=== PATIENT | female | born 1955 | race Caucasian/White ===

== ENCOUNTER → 2023-03-27 12:59 | Outpatient (REF) | payer MEDICARE, OTHER, SELFPAY | LOC: RAD 12:59 | PROVIDERS: ATTENDING PHYSICIAN Physician Assistant; FAMILY PHYSICIAN Family Medicine | DX: I77.0 Arteriovenous fistula, acquired (principal) | CPT/HCPCS: 93990 ==

== ENCOUNTER → 2023-04-28 11:35 | Outpatient (REF) | payer MEDICARE, OTHER, SELFPAY | LOC: WDC 11:35 | PROVIDERS: ATTENDING PHYSICIAN Family Medicine | DX: Z12.31 Encounter for screening mammogram for malignant neoplasm of breast (principal) | CPT/HCPCS: 77063; 77067 ==

== ENCOUNTER 2023-06-06 06:59 | Day surgery (SDC) | payer MEDICARE, OTHER, SELFPAY ==
[2023-06-06] VITALS (12 sets, daily range): BP systolic 134–200; BP diastolic 54–76; BMI 29.5
[2023-06-06 07:47] LABS: Glucose - Point of Care 123 mg/dl (70-99)
[2023-06-06] MEDS: PERIDEX 0.12% ORAL RINSE 15 ML PO (07:50)
[2023-06-06 07:53] LABS: Hematocrit 30.3 % (37.0-47.0); Hemoglobin 10.5 g/dL (12.0-16.0); Mean Corp Hgb Conc. 34.7 g/dL (33.0-37.0); Mean Corpuscular Hgb 32.8 pg (27.0-31.0); Mean Corpuscular Volume 94.7 fL (81.0-99.0); Mean Platelet Volume 9.7 fL (7.4-10.4); Platelet Count 236 10^3/uL (130-400); Red Cell Dist. Width 13.5 % (11.5-14.5); White Blood Cell Count 7.8 10^3/uL (4.8-10.8)
[2023-06-06 08:00] LABS: Blood Urea Nitrogen 33 mg/dl (7-17); Calcium 10.5 mg/dl (8.4-10.2); Carbon Dioxide 31 mmol/L (22-30); Chloride 99 mmol/L (98-107); Estimated Creatinine Clearance 14 ml/min; Glucose 125 mg/dl (70-99); Potassium 4.6 mmol/L (3.5-5.1); Sodium 136 mmol/L (135-145); eGFR 12.29
[2023-06-06 08:10] LABS: APTT 32.3 Sec (23.4-35.0)
[2023-06-06] MEDS: BACTROBAN NASAL 1 GRAM NASAL (08:17)
--- NOTE | 2023-06-06 08:30 | W.SUR.PREOP ---
Pre-Operative Surgical Note
-
I have examined this patient prior to the performance of the scheduled procedure.
The patient's condition is unchanged from the time of the current History and
Physical and the patient is able to undergo the scheduled procedure.
--- NOTE | 2023-06-06 10:06 | W.PA-PDMP ---
[place]-PDMP
-
Checked the [place]- Prescription Drug Monitoring Program website, no red flags identified; safe to proceed with prescription.
--- NOTE | 2023-06-06 10:07 | OR.RPT ---
Operative Report
Operative Report
Date of Operation: 06/06/2023
Pre Op Diagnosis: Upper extremity brachiobasilic AV fistula (status post 1st stage of planned 2 stage basilic vein transposition)
Post Op Diagnosis: Upper extremity brachiobasilic AV fistula (status post 1st stage of planned 2 stage basilic vein transposition)
Procedure: Revision of left upper extremity brachiobasilic AV fistula with transposition of the basilic vein (second stage BVT)
Surgeon: Daniel Lopez III, MD
[employer]: Param Ramsey MD PhD, PGY1
Anesthesia: General
Complications: None
Estimated Blood Loss: 20 cc
History and Indications for Procedure: Status post first stage of a planned two-stage left upper extremity basilic vein transposition for hemodialysis access. She was brought back to the operating room today for stage II.
Procedure in Detail: Sharon Washington was correctly identified and placed supine on the operating table. After adequate induction of anesthesia the left arm was abducted 90 degrees. A timeout procedure was performed with the nursing and anesthesia
staff confirming the patient's identity and the nature and laterality of the procedure. The basilic vein was marked in the upper arm with ultrasound guidance. The arm was then circumferentially prepped and draped in the usual sterile fashion. We
made an incision over the medial upper arm. The entire basilic vein was dissected with careful sharp dissection. All branches were ligated and divided between ties and metal clips. The vein was good caliber along the entire course and had an
excellent thrill. Once the entire vein had been carefully dissected we then created a gentle curved tunnel lateral to the incision over the bicep with a long clamp. Proximal control was obtained on the vein with a small vascular clamp. The vein was
marked and then transected near the arterial anastomosis. The vein was flushed easily with heparinized saline solution. The vein was then brought through the tunnel carefully. The two ends of the vein were anastomosed to one another in an
end-to-end fashion using a running 7-0 Prolene suture. At the completion of the anastomosis the clamp was released and flow restored through the fistula. There was an excellent thrill in the tunnel. The suture line was inspected for hemostasis and
this was achieved. The wound was irrigated with warm saline solution. Hemostasis was achieved in the wound bed. Local anesthesia was infiltrated into the skin and subcutaneous tissue around the wound margin. The wound was then closed in multiple
layers and skin glue was applied. The patient had an easily palpable thrill over the basilic vein in the tunnel and a palpable radial pulse at the conclusion of the case.
Attestation: I was present and responsible for the entire procedure
Signed:
Daniel Lopez III, MD
[facility]
[phone] (cell)
--- NOTE | 2023-06-06 10:22 | W.IMMPOSTOP ---
Surgical Immed Post Op Note
-
Primary Surgeon: Dr. Daniel Ruiz III, MD
Assisting Surgeon: Dr. Param Ramsey MD, PhD (PGY-1)
Pre-op Diagnosis: Left upper extremity AV fistula (brachiobasilic) s/p stage 1
Post-op Diagnosis: Left upper extremity AV fistula (brachiobasilic) s/p stage 2 transposition of basilic vein
Procedure Performed: Left upper extremity basilic vein transposition
Anesthesia Type: General
Specimen / Cultures: None
Estimated Blood Loss: 20cc
Complications: None
Operative Findings: At the beginning of the procedure, the basilic vein was identified via ultrasound and its course marked with a marking pen on the skin. Incision was made in the medial aspect of the left upper extremity along the course of the
basilic vein. The basilic vein was circumferentially dissected along its entire course with sharp dissection. Branches of the basilic vein were ligated with silk suture or clips as necessary and divided. A soft tissue tunnel was created cranially
with respect to the vein. The basilic vein was clamped distally and divided near the AV fistula anastomosis. Heparinized saline was injected into both proximall and distal ends of the basilic vein. The proximal aspect of the vein was tunneled
through the soft tissue tunnel and the two ends of the vein were anastomosed using a running 7-0 prolene suture. Following the anastomosis, the clamp was released and palpable flow was confirmed with a robust palpable thrill noted along the entire
extent of the vein. The wound bed was irrigated and hemostasis was achieved with fibrillar. Soft tissues and skin were closed with two layers of running suture and skin glue. Postoperatively, the patient continued to have an excellent palpable
thrill along the length of the basilic vein.
[2023-06-06 10:30] LABS: Glucose - Point of Care 126 mg/dl (70-99)
== END 2023-06-06 12:37 | disposition home or self-care (01) ==
LOC: CATH 06:59
PROVIDERS: ATTENDING PHYSICIAN Surgery Vascular Surgery; FAMILY PHYSICIAN Family Medicine; OTHER PHYSICIAN Internal Medicine Cardiovascular Disease
DX: Z49.01 Encounter for fitting and adjustment of extracorporeal dialysis catheter (principal); Z99.2 Dependence on renal dialysis; E11.22 Type 2 diabetes mellitus with diabetic chronic kidney disease; I13.2 Hypertensive heart and chronic kidney disease with heart failure and with stage 5 chronic kidney disease, or end stage renal disease; N18.6 End stage renal disease; I50.22 Chronic systolic (congestive) heart failure; Z79.4 Long term (current) use of insulin; I25.10 Atherosclerotic heart disease of native coronary artery without angina pectoris
CPT/HCPCS: 36832; 80048; 82962; 85027; 85610; 85730; 93005

== ENCOUNTER → 2023-07-14 06:25 | Day surgery (SDC) | payer MEDICARE, OTHER, SELFPAY ==
[2023-07-14 07:20] LABS: Glucose - Point of Care 103 mg/dl (70-99)
== END ==
LOC: GI 06:25
PROVIDERS: ATTENDING PHYSICIAN Internal Medicine Gastroenterology
DX: Z12.11 Encounter for screening for malignant neoplasm of colon (principal); K57.30 Diverticulosis of large intestine without perforation or abscess without bleeding; Z53.9 Procedure and treatment not carried out, unspecified reason
CPT/HCPCS: 45378; 82962

== ENCOUNTER → 2023-07-31 10:22 | Outpatient (REF) | payer MEDICARE, OTHER, SELFPAY ==
[2023-07-31 10:30] VITALS: BP 199/77; BP_SYST 72
== END ==
LOC: RADI 10:22
PROVIDERS: ATTENDING PHYSICIAN Student in an Organized Health Care Education/Training Program; FAMILY PHYSICIAN Family Medicine
DX: Z49.01 Encounter for fitting and adjustment of extracorporeal dialysis catheter (principal); N18.6 End stage renal disease
CPT/HCPCS: 36589

== ENCOUNTER → 2023-08-21 06:32 | Day surgery (SDC) | payer MEDICARE, OTHER, SELFPAY ==
[2023-08-21 07:59] LABS: Glucose - Point of Care 132 mg/dl (70-99)
== END ==
LOC: GI 06:32
PROVIDERS: ATTENDING PHYSICIAN Internal Medicine Gastroenterology
DX: Z12.11 Encounter for screening for malignant neoplasm of colon (principal); D12.3 Benign neoplasm of transverse colon; D12.5 Benign neoplasm of sigmoid colon; K57.30 Diverticulosis of large intestine without perforation or abscess without bleeding; K64.8 Other hemorrhoids; Q43.8 Other specified congenital malformations of intestine
CPT/HCPCS: 45385; 45380; 88305; 82962

== ENCOUNTER → 2024-02-12 10:25 | Outpatient (REF) | payer MEDICARE, OTHER, SELFPAY | LOC: HWRAD 10:25 | PROVIDERS: ATTENDING PHYSICIAN Student in an Organized Health Care Education/Training Program; FAMILY PHYSICIAN Family Medicine | DX: R93.89 Abnormal findings on diagnostic imaging of other specified body structures (principal) | CPT/HCPCS: 76830; 76856 ==

== ENCOUNTER 2024-04-21 06:38 | Day surgery (SDC) | payer MEDICARE, OTHER, SELFPAY ==
[2024-04-14 14:19] VITALS: BMI 27.9
--- NOTE | 2024-04-20 12:33 | HPS.HSE ---
Family Physician
-
Family Physician: INTERVIEWE UNKNOWN - PT NOT
Chief Complaint
-
hysteroscopy, D&C
History of Present Illness
Patient is a 68yo who presents for hysteroscopy D&C. Patient is has kidney failure on dialysis and is planning to get on the kidney transplant list. As part of this, she had an MRI that showed the ET was 6mm. She then had a pelvic ultrasound
that showed abnormal appearance of the endometrium measuring up to 8mm in thickness, distended with complex fluid. There was a more focal hyperechoic lesion measuring [id number] which could represent an endometrial polyp. She denies PMB. Given these
findings, hysteroscopy D&C with possible polypectomy was recommended.
Pap: 11/2023, nml per patient
Mammo: 05/2023, nml per patient
Colonoscopy: 07/2023 nml per patient
PMHx: type 2 DM, kidney failure on dialysis, hx blood transfusions
Meds: atorvastatin 40mg daily, bASA 81mg daily, Calcitriol 0.5mcg every other day, cinacalcet 60mg daily, lantus 11u daily, novolog sliding scale, probiotic, sevelamer 800mg 2 tablets TID
Surghx: quadruple bypass
All: PCN, vancomycin- anaphylaxis
Socialhx: denies tobacco, etoh or illicit drug use
Famhx: mom w/ heart disease, hypothyroid and DM
Gynhx: denies hx abnormal Pap smears or STDs, last Pap 11/2023
OBHx: , EABx1, SVDx3
Medical History
Past Medical History
Past Medical History: Reports IDDM and Renal Failure
Past Surgical History: Reports Cardiac
Social History
Tobacco: Non-smoker
Alcohol: None
Drug: None
Family History
Family History: CAD
Allergies / Home Medications
Allergies reflects when Allergies were last updated in [employer].
Home Medications with original date entered in [employer]
Allergy/Medication List:
Meds: atorvastatin 40mg daily, bASA 81mg daily, Calcitriol 0.5mcg every other day, cinacalcet 60mg daily, lantus 11u daily, novolog sliding scale, probiotic, sevelamer 800mg 2 tablets TID
All: PCN, vancomycin- anaphylaxis
Review of Systems
-
A 12 point ROS was completed and negative except as noted: Yes
Physical Exam
Physical Exam
General: Well Developed and Well Nourished
HEENT: NormoCephalic
Respiratory: Non Labored Respirations
Cardiac: Regular Rhythm
Skin: Warm and Dry
Neuro: Awake and Oriented
Impression/Plan
-
IMPRESSION:
Patient is a 69yo who presents for hysteroscopy D&C with myosure and possible polypectomy
PLAN:
- Pelvic US reviewed with patient and her daughter. Thickened endometrium with possible endometrial polyp. Recommend proceeding with hysteroscopy D&C with Myosure and possible polypectomy
- Risks, benefits, and alternatives including bleeding, infection, damage to surrounding structures, uterine perforation, and need for future operations discussed. Consent was signed. Patient was consented for a blood transfusion in case of emergency
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
- Cytotec sent to pharmacy. Patient to take 200mcg the night before and morning of the procedure
[2024-04-21 10:10] VITALS: BP 144/94
[2024-04-21 10:16] LABS: Glucose - Point of Care 133 mg/dl (70-99)
[2024-04-21 10:28] VITALS: BMI 27.9
[2024-04-21 12:21] LABS: Glucose - Point of Care 149 mg/dl (70-99)
[2024-04-21 14:00] LABS: Glucose - Point of Care 135 mg/dl (70-99)
[2024-04-21 15:15] VITALS: BP 144/94; BP 162/61
[2024-04-21 15:30] VITALS: BP 173/64
[2024-04-21 15:43] LABS: Glucose - Point of Care 138 mg/dl (70-99)
[2024-04-21 15:45] VITALS: BP 174/63
--- NOTE | 2024-04-21 15:53 | OR.RPT ---
Operative Report
Operative Report
Procedure date: 04/21/2024
Preop diagnosis:
- Thickened endometrium on ultrasound
- Endometrial polyp
Postop diagnosis
- Endometrial polyp
Procedure
- Hysteroscopy, dilation and curettage
- Polypectomy
Surgeon: Melissa
Anesthesia: General, Dr. Carson
EBL 5cc
Complications: none
Findings
- Normal appearing external genitalia
- Cervix without lesions or masses
- Bimanual exam with anteverted uterus
- Hysteroscopic evaluation revealed multiple endometrial polyps on the left side of the endometrial cavity near the fundus, both tubal ostia visualized. Otherwise, atrophic appearing endometrium
Pathology: endometrial curettings, endometrial polyp
Indication:
Patient is a 69yo who presents for hysteroscopy D&C. Patient has kidney failure on dialysis and is planning to get on the kidney transplant list. As part of this, she had an MRI that showed the endometrium was thickened at 6mm. She then had
a pelvic ultrasound that showed abnormal appearance of the endometrium measuring up to 8mm in thickness, distended with complex fluid. There was a more focal hyperechoic lesion measuring [id number] which could represent an endometrial polyp. She denies
PMB. Given these findings, hysteroscopy D&C with possible polypectomy was recommended.
Procedure:
Patient was taken to the operating room and placed under general anesthesia. She was placed in the dorsal lithotomy position with Zac type stirrups. She was prepped and draped in the normal sterile fashion. Bimanual exam revealed the
aforementioned findings. The bladder was drained with a straight catheter yielding 50cc of clear urine. A Sepulveda retractor was placed in the anterior portion of the vagina and a Sepulveda retractor in the posterior aspect of the vagina revealing good
visualization the cervix. The anterior lip of the cervix was grasped with a single tooth tenaculum. The uterus was sounded to 9cm. The cervix was sequentially dilated to accommodate the Myosure hysteroscope. The hysteroscope was advanced under
direct visualization. Hysteroscopic evaluation revealed the aforementioned findings. The endometrial polyps were removed using the MyoSure Reach resecting device. The hysteroscope was removed. A size 0 curette was introduced into the cervix. The
uterus was curetted in a clockwise fashion until uterine cry was felt in all quadrants. Endometrial curettings and endometrial polyp were sent to pathology for evaluation. The tenaculum was removed from the cervix and good hemostasis was noted. All
instruments were removed from the vagina.
The patient tolerated the procedure well. All sponge and instrument counts were correct x2. She was taken to PACU in stable condition.
[2024-04-21 16:03] VITALS: BP 159/75
[2024-04-21] MEDS: TYLENOL 650 MG PO (16:12)
[2024-04-21 16:30] VITALS: BP 171/74
== END 2024-04-21 17:25 | disposition home or self-care (01) ==
LOC: SDS 06:38
PROVIDERS: ATTENDING PHYSICIAN Student in an Organized Health Care Education/Training Program
DX: N84.0 Polyp of corpus uteri (principal); N19 Unspecified kidney failure; Z99.2 Dependence on renal dialysis
CPT/HCPCS: 58558; 88305; 82962

== ENCOUNTER 2024-05-21 02:54 | Emergency (ER) | payer MEDICARE, OTHER, SELFPAY ==
[2024-05-21 02:57] VITALS: BMI 27.2
[2024-05-21 02:58] VITALS: BP 191/81
[2024-05-21 03:00] VITALS: BP 191/81
[2024-05-21 03:28] LABS: % Basophils 0.4 % (0-2); % Immature Granulocytes 0.2 % (0-0.5); % Lymphocytes 16.5 % (20.5-51.1); % Monocytes 9.8 % (1.7-9.3); % Neutrophils 73.1 % (42.2-75.2); Absolute Lymphocytes 1.4 10^3/uL (1.2-3.4); Absolute Monocytes 0.8 10^3/uL (0.1-0.6); Hematocrit 34.5 % (37.0-47.0); Hemoglobin 11.2 g/dL (12.0-16.0); Mean Corp Hgb Conc. 32.5 g/dL (33.0-37.0); Mean Corpuscular Hgb 31.4 pg (27.0-31.0); Mean Corpuscular Volume 96.6 fL (81.0-99.0); Mean Platelet Volume 9.9 fL (7.4-10.4); Nucleated Red Blood Cells % 0 %; Platelet Count 250 10^3/uL (130-400); Red Blood Cell Count 3.57 10^6/uL (4.20-5.40); Red Cell Dist. Width 14.6 % (11.5-14.5); White Blood Cell Count 8.2 10^3/uL (4.8-10.8)
--- NOTE | 2024-05-21 03:47 | ED.GENMED ---
History of Present Illness
General
Chief Complaint: Headache
Source: patient
Time Seen by Provider: 05/21/24 02:57
Nursing documentation reviewed up to this point in time: agreed with
History of Present Illness
History of Present Illness:
Pleasant 69-year-old female that presents to the emergency department with headache behind her left eye. She states that it was transient and woke her from sleep 2 hours prior to arrival she states that her pain has resolved she did have some
nausea but she attributes that to the ambulance ride. Patient is diabetic does suffer from neuropathy. She has had extensive cardiac history as well. Denies any chest pain or shortness of breath. Denies visual acuity changes or blurry vision.
Denies any eye trauma.
Past History
Past History
ED Past Medical History: HTN, IDDM and Other (charcot foot)
ED Past Surgical History: Other (fusion R ankle)
Patient has exhibited threatening behavior?: No
PSI?: No
Social History
Tobacco: Non-smoker
Alcohol: Occasional
Drug: None
Personal:
Living: with family
Employment: Employed
Review of Systems
Review of Systems
Allergies reviewed?: Yes
Constitutional: Reports other (Left eye pain)
Phy Exam
General Physical Exam
General Presentation: well appearing and no apparent distress
General Skin: warm and dry
General Habitus: normal
General Mental: alert
General Hydration: appears well hydrated
ENT Exam
ENT Exam: EOMI, pharynx normal, neck supple and normocephalic
Eye Exam
Eye Exam: PERRL, cornea clear and conjunctiva normal
Pressure: 15
Cardiovascular Exam
Cardiovascular Exam: regular rate/rhythm, no edema, no murmur and normal peripheral pulses
Pulmonary Exam
Pulmonary Exam: lungs clear, no respiratory distress, no rales, no crackles, no rhonchi, no stridor, no wheezing and no cough
Gastrointestinal Exam
Gastrointestinal Exam: normal bowel sounds, non tender, soft, no organomegaly, no pulsatile mass and non distended
Neurological Exam
Neurological Exam: alert, oriented x3, no motor deficits and speech normal
Musculoskeletal Exam
Musculoskeletal Exam: full ROM and no edema
Skin Exam
Skin Exam: normal color, warm/dry, no rash and no petechia
Psychiatric Exam
Psychiatric Exam: normal mood/affect
Course
Orders/Labs/Results
Orders:
Orders
05/21/24 03:05
Complete Blood Count/With Diff Urgent
Comprehensive Metabolic Panel Urgent
05/21/24 03:27
CT Head W/o Iv Contrast Urgent
Comment:
Reason For Exam: left eye pain
05/21/24 03:34
CRP [C-Reactive Protein] Urgent
Sed Rate [Erythrocyte Sed Rate] Urgent
Abnormal Lab Results
05/21/24 05/21/24
03:05 03:34
RBC 3.57 L 10^6/uL
(4.20-5.40)
Hgb 11.2 L g/dL
(12.0-16.0)
Hct 34.5 L %
(37.0-47.0)
MCH 31.4 H pg
(27.0-31.0)
MCHC 32.5 L g/dL
(33.0-37.0)
RDW 14.6 H %
(11.5-14.5)
Absolute Monos (auto) 0.8 H 10^3/uL
(0.1-0.6)
Lymphocytes % 16.5 L %
(20.5-51.1)
Monocytes % 9.8 H %
(1.7-9.3)
ESR 29 H mm/hour
(0-20)
BUN 38 H mg/dl
(7-17)
Creatinine 4.8 H* mg/dL
(0.6-1.0)
Glucose 115 H mg/dl
(70-99)
Alkaline Phosphatase 210 H U/L
(38-126)
Total Protein 6.0 L g/dl
(6.3-8.2)
05/21/24 03:05
05/21/24 03:05
Vital Signs
Initial and Last Documented VS:
Initial Vital Signs
Temp Pulse Resp
98.4 F 83 21
05/21/24 02:57 05/21/24 02:57 05/21/24 02:57
Last Documented Vital Signs
Temp Pulse Resp BP Pulse Ox
98.4 F 76 19 173/81 93
05/21/24 02:57 05/21/24 05:00 05/21/24 05:00 05/21/24 05:00 05/21/24 03:15
*Critical Care Note
Total Time (30-74mins, 75-104mins- exclusive of procedures): Not Applicable
Update Note
Update Note:
CT HEAD WITHOUT CONTRAST
COMPARISON: None
IMPRESSION:
No acute intracranial hemorrhage. No evidence of acute infarct.
Moderate to severe cerebral volume loss with a frontoparietal predominance with areas of knifelike gyri.
Ventricles are normal without hydrocephalus.
Visualized paranasal sinuses and mastoids are clear.
4 mm calcified right frontal extra-axial lesion, probable tiny meningioma.
ED Attending Note
-
Portions of this chart may have been created with voice recognition software.� Occasional wrong word or��sound alike� substitutions may have occurred due to the inherent limitations of voice recognition software.
Discharge Plan
Departure
Prescriptions:
No Action
calcitriol 0.5 mcg Capsule
0.25 mcg PO MOWEFR
insulin glargine [Lantus Solostar U-100 Insulin] 100 unit/mL (3 mL) Insulin Pen
11 unit SC HS
Patient Comments:
Took 7 units
Ocuvite Adult 50 Plus 250 mg (90 mg-160 mg) Capsule
1 cap PO DAILY
cinacalcet 30 mg Tablet
60 mg PO DAILY
Dialyvite 100-1 mg Tablet
1 tab PO DAILY
sevelamer carbonate [Renvela] 800 mg Tablet
800 mg PO BID
atorvastatin [Lipitor] 40 mg Tablet
40 mg PO HS
esomeprazole magnesium [Nexium] 20 mg Capsule,Delayed Release(Dr/Ec)
20 mg PO HS
insulin aspart U-100 [Novolog FlexPen U-100 Insulin] 100 unit/mL (3 mL) Insulin Pen
1 sliding scale dose SC DIRECTED
Patient Comments:
Took 4 Units
Rx Instructions:
3-7 UNITS W/ MEALS PER PT;
aspirin 81 mg Tablet,Delayed Release (Dr/Ec)
81 mg PO DAILY
Referrals:
Tomasa Corcoran MD [Family Provider] -
Interventions
Interventions:
*Risk Screen - Suicide Last Done: 05/21/24 02:59
*General Assessment Last Done: 05/21/24 02:59
*Neglect/Abuse Screening Last Done: 05/21/24 02:59
*ED- Fall Risk Assessment Last Done: 05/21/24 02:59
*ED COVID-19 Vaccine History Last Done: 05/21/24 02:59
ED- Neurological Assessment Last Done: 05/21/24 03:08
Discharge Date and Time
Print Language: SENEGALESE
[2024-05-21 03:58] LABS: ALT (SGPT) 22 U/L (0-35); AST (SGOT) 19 U/L (14-36); Albumin 3.8 g/dl (3.5-5.0); Alkaline Phosphatase 210 U/L (38-126); Blood Urea Nitrogen 38 mg/dl (7-17); Carbon Dioxide 28 mmol/L (22-30); Chloride 105 mmol/L (98-107); Estimated Creatinine Clearance 11 ml/min; Glucose 115 mg/dl (70-99); Potassium 4.7 mmol/L (3.5-5.1); Sodium 143 mmol/L (135-145); Total Bilirubin 0.6 mg/dl (0.2-1.3); eGFR 9.23
[2024-05-21 04:00] VITALS: BP 184/71
[2024-05-21 04:17] LABS: Erythrocyte Sed Rate 29 mm/hour (0-20)
[2024-05-21 04:36] LABS: C-Reactive Protein < 5.00 mg/L (0.0-10.00)
[2024-05-21 05:00] VITALS: BP 173/81
[2024-05-21] MEDS: TYLENOL 1000 MG PO (05:28)
--- NOTE | 2024-05-21 05:59 | ED.GENMED ---
History of Present Illness
General
Chief Complaint: Headache
Time Seen by Provider: 05/21/24 02:57
Past History
Past History
ED Past Medical History: HTN, IDDM and Other (charcot foot)
ED Past Surgical History: Other (fusion R ankle)
Patient has exhibited threatening behavior?: No
PSI?: No
Social History
Tobacco: Non-smoker
Alcohol: Occasional
Drug: None
Personal:
Living: with family
Employment: Employed
Course
Orders/Labs/Results
Orders:
Orders
05/21/24 03:05
Complete Blood Count/With Diff Urgent
Comprehensive Metabolic Panel Urgent
05/21/24 03:27
CT Head W/o Iv Contrast Urgent
Comment:
Reason For Exam: left eye pain
05/21/24 03:34
CRP [C-Reactive Protein] Urgent
Sed Rate [Erythrocyte Sed Rate] Urgent
05/21/24 05:26
Acetaminophen [Tylenol] 1,000 mg .ROUTE .STK-MED ONE
Acetaminophen [Tylenol] 1,000 mg PO NOW STA
Abnormal Lab Results
05/21/24 05/21/24
03:05 03:34
RBC 3.57 L 10^6/uL
(4.20-5.40)
Hgb 11.2 L g/dL
(12.0-16.0)
Hct 34.5 L %
(37.0-47.0)
MCH 31.4 H pg
(27.0-31.0)
MCHC 32.5 L g/dL
(33.0-37.0)
RDW 14.6 H %
(11.5-14.5)
Absolute Monos (auto) 0.8 H 10^3/uL
(0.1-0.6)
Lymphocytes % 16.5 L %
(20.5-51.1)
Monocytes % 9.8 H %
(1.7-9.3)
ESR 29 H mm/hour
(0-20)
BUN 38 H mg/dl
(7-17)
Creatinine 4.8 H* mg/dL
(0.6-1.0)
Glucose 115 H mg/dl
(70-99)
Alkaline Phosphatase 210 H U/L
(38-126)
Total Protein 6.0 L g/dl
(6.3-8.2)
05/21/24 03:05
05/21/24 03:05
Vital Signs
Initial and Last Documented VS:
Initial Vital Signs
Temp Pulse Resp
98.4 F 83 21
05/21/24 02:57 05/21/24 02:57 05/21/24 02:57
Last Documented Vital Signs
Temp Pulse Resp BP Pulse Ox
98.4 F 79 16 173/81 92
05/21/24 02:57 05/21/24 05:45 05/21/24 05:45 05/21/24 05:00 05/21/24 05:45
ED Attending Note
-
Portions of this chart may have been created with voice recognition software.� Occasional wrong word or��sound alike� substitutions may have occurred due to the inherent limitations of voice recognition software.
Discharge Plan
Departure
Patient Disposition: Home (Routine Discharge)
Date of Disposition: 05/21/24
Time of Disposition: 05:59
Patient with high blood pressure during this ER visit?: No
Condition: Good
Discharge Problem:
Eye pain, Headache
Instructions: Headache, Adult (DC), Eyestrain
Prescriptions:
No Action
calcitriol 0.5 mcg Capsule
0.25 mcg PO MOWEFR
insulin glargine [Lantus Solostar U-100 Insulin] 100 unit/mL (3 mL) Insulin Pen
11 unit SC HS
Patient Comments:
Took 7 units
Ocuvite Adult 50 Plus 250 mg (90 mg-160 mg) Capsule
1 cap PO DAILY
cinacalcet 30 mg Tablet
60 mg PO DAILY
Dialyvite 100-1 mg Tablet
1 tab PO DAILY
sevelamer carbonate [Renvela] 800 mg Tablet
800 mg PO BID
atorvastatin [Lipitor] 40 mg Tablet
40 mg PO HS
esomeprazole magnesium [Nexium] 20 mg Capsule,Delayed Release(Dr/Ec)
20 mg PO HS
insulin aspart U-100 [Novolog FlexPen U-100 Insulin] 100 unit/mL (3 mL) Insulin Pen
1 sliding scale dose SC DIRECTED
Patient Comments:
Took 4 Units
Rx Instructions:
3-7 UNITS W/ MEALS PER PT;
aspirin 81 mg Tablet,Delayed Release (Dr/Ec)
81 mg PO DAILY
Referrals:
Tomasa Corcoran MD [Family Provider] -
Activity Restrictions/Additional Instructions:
As discussed, please follow-up with your works manager.
Thank You for choosing [facility].
It was a pleasure meeting you and taking part in your care. We hope for your continued healing and wellness.
Please read discharge instructions in their entirety. However, they are for general education and may not describe your exact diagnosis at discharge. Information on your ER visit and medical conditions were discussed with you along with appropriate
follow up information...
If indicated, please take your medications as instructed and indicated on discharge paperwork.
Please schedule a follow up appointment as directed. Call to schedule an appointment
Please return to the emergency department with ANY change in, persisting, or worsening of symptoms. If any of your symptoms do not improve, or persist, or become more severe within 6-12 hours, please return to the emergency department for further
care.
Please return to the emergency department if you develop a headache, neck pain/stiffness, fever greater than 100.4F, chest pain, shortness of breath, persistent nausea, vomiting, slurred speech, difficulty walking, numbness/tingling, weakness, signs
of infection or any other symptoms that are worrisome to you.
If you have any questions or concerns please do not hesitate to call the Hospital at or E-mail me directly at [email or web address]
Interventions
Interventions:
*Risk Screen - Suicide Last Done: 05/21/24 02:59
*General Assessment Last Done: 05/21/24 02:59
*Neglect/Abuse Screening Last Done: 05/21/24 02:59
*ED- Fall Risk Assessment Last Done: 05/21/24 02:59
*ED COVID-19 Vaccine History Last Done: 05/21/24 02:59
ED- Neurological Assessment Last Done: 05/21/24 03:08
Discharge Date and Time
Print Language: SETSWANA
== END 2024-05-21 06:53 | disposition home or self-care (01) ==
LOC: EMR 02:54
PROVIDERS: EMERGENCY PHYSICIAN Student in an Organized Health Care Education/Training Program; FAMILY PHYSICIAN Family Medicine
DX: R51.9 Headache, unspecified (principal); H57.12 Ocular pain, left eye; E11.40 Type 2 diabetes mellitus with diabetic neuropathy, unspecified; I10 Essential (primary) hypertension
CPT/HCPCS: 99284; 70450; 80053; 85025; 85652; 86140

== ENCOUNTER 2024-07-15 04:14 | Emergency (ER) | payer MEDICARE, OTHER, SELFPAY ==
[2024-07-15 04:20] VITALS: BP 200/78; BMI 26.6
--- NOTE | 2024-07-15 06:29 | ED.GENMED ---
History of Present Illness
General
Chief Complaint: Skin Problem
Source: patient
Time Seen by Provider: 07/15/24 06:02
History of Present Illness
History of Present Illness:
69-year-old female presents to the emergency room complaining of bleeding from a skin lesion on her right anterior chest. Patient awoke from sleep and noted the bleeding. She was unable to control the bleeding with direct pressure at home. After
couple hours she ultimately decided to come to the emergency room for evaluation. Bleeding did ultimately stopped prior to my evaluation. Patient takes aspirin but no other anticoagulants. Patient states this site of bleeding is at a location
where she had a tunneled dialysis catheter previously. That catheter was removed over a year ago. She has had no bleeding since its removal. She does recall that the skin around the insertion site was quite 'beat up' and took a long time to heal.
She was left with a small pimple like lesion where she has the bleeding now. Patient denies any fever, chills. She is on the transplant list at the [facility]. She has had extensive imaging including MRI of her chest recently and
they have not identified any large collections or problems in that area.
Past History
Past History
ED Past Medical History: HTN, IDDM and Other (charcot foot)
ED Past Surgical History: Other (fusion R ankle)
Patient has exhibited threatening behavior?: No
PSI?: No
Social History
Tobacco: Non-smoker
Alcohol: Occasional
Drug: None
Personal:
Living: with family
Employment: Employed
Phy Exam
Physical Exam
Physical Exam:
General: Awake, Alert, Oriented X3. No acute distress.
Vitals: unremarkable
Head: Atraumatic
Eyes: Pupils equal, EOMI
Neuro: Nonfocal
Skin: Warm, dry, no rash. Small punctate area noted right chest a couple centimeters below the clavicle and it approximate line with the sternoclavicular joint. No active bleeding now. No surrounding erythema. No fluctuance around the area.
Extremities: pulses equal b/l, no edema
Course
Vital Signs
Initial and Last Documented VS:
Initial Vital Signs
Temp Pulse Resp BP Pulse Ox
97.9 F 70 16 200/78 95
07/15/24 04:20 07/15/24 04:20 07/15/24 04:20 07/15/24 04:20 07/15/24 04:20
Last Documented Vital Signs
Temp Pulse Resp BP Pulse Ox
97.9 F 71 16 198/75 98
07/15/24 04:20 07/15/24 06:55 07/15/24 06:55 07/15/24 06:55 07/15/24 06:55
MDM/Problems Addressed
Differential Diagnosis Includes:
Ulceration of a superficial vein, bleeding from chronic wound, cutaneous venous fistula
MDM/Problems Addressed:
Bleeding has stopped. No further intervention required at this moment. Considered the presence of a cutaneous venous fistula however it has been over a year and she has had no bleeding in that interval which would make this extremely unlikely.
Additionally the patient's had extensive imaging at [place] during her workup for kidney transplant. Seems unlikely they would have not identified any abnormality there was truly a fistula or collection remaining at this area. Recommend she follow
with dermatology.
*Pulse Oximetry
Patient hypoxic: no
*Critical Care Note
Total Time (30-74mins, 75-104mins- exclusive of procedures): Not Applicable
ED Attending Note
-
Portions of this chart may have been created with voice recognition software.� Occasional wrong word or��sound alike� substitutions may have occurred due to the inherent limitations of voice recognition software.
Discharge Plan
Departure
Patient Disposition: Home (Routine Discharge)
Date of Disposition: 07/15/24
Time of Disposition: 06:29
Patient with high blood pressure during this ER visit?: Yes
Condition: Good
Discharge Problem:
Hemorrhage of skin lesion
Instructions: Wound Care (DC)
Prescriptions:
No Action
calcitriol 0.5 mcg Capsule
0.25 mcg PO MOWEFR
insulin glargine [Lantus Solostar U-100 Insulin] 100 unit/mL (3 mL) Insulin Pen
11 unit SC HS
Patient Comments:
Took 7 units
Ocuvite Adult 50 Plus 250 mg (90 mg-160 mg) Capsule
1 cap PO DAILY
cinacalcet 30 mg Tablet
60 mg PO DAILY
Dialyvite 100-1 mg Tablet
1 tab PO DAILY
sevelamer carbonate [Renvela] 800 mg Tablet
800 mg PO BID
atorvastatin [Lipitor] 40 mg Tablet
40 mg PO HS
esomeprazole magnesium [Nexium] 20 mg Capsule,Delayed Release(Dr/Ec)
20 mg PO HS
insulin aspart U-100 [Novolog FlexPen U-100 Insulin] 100 unit/mL (3 mL) Insulin Pen
1 sliding scale dose SC DIRECTED
Patient Comments:
Took 4 Units
Rx Instructions:
3-7 UNITS W/ MEALS PER PT;
aspirin 81 mg Tablet,Delayed Release (Dr/Ec)
81 mg PO DAILY
Referrals:
Tomasa Corcoran MD [Family Provider, Family Practice]
Brian Smith MD [Active, Dermatology]
Activity Restrictions/Additional Instructions:
Please follow up with a gyro compass tester. I have given you the contact number for one of our's if you don't have someone you are seeing already.
Interventions
Interventions:
*Risk Screen - Suicide Last Done: 07/15/24 04:20
*General Assessment Last Done: 07/15/24 04:20
*Neglect/Abuse Screening Last Done: 07/15/24 04:20
*ED- Fall Risk Assessment Last Done: 07/15/24 04:20
*ED COVID-19 Vaccine History Last Done: 07/15/24 04:20
*Nursing Disposition Last Done: 07/15/24 07:00
ED-Skin Assessment Last Done: 07/15/24 04:42
Discharge Date and Time
Discharge Date/Time: 07/15/24 07:02
Print Language: GREEK
[2024-07-15 06:55] VITALS: BP 198/75
== END 2024-07-15 07:02 | disposition home or self-care (01) ==
LOC: EMR 04:14
PROVIDERS: EMERGENCY PHYSICIAN Emergency Medicine; FAMILY PHYSICIAN Family Medicine
DX: L98.9 Disorder of the skin and subcutaneous tissue, unspecified (principal); I10 Essential (primary) hypertension; E11.9 Type 2 diabetes mellitus without complications; Z76.82 Awaiting organ transplant status; Z79.82 Long term (current) use of aspirin
CPT/HCPCS: 99282

== ENCOUNTER → 2024-09-02 11:11 | Outpatient (REF) | payer MEDICARE, OTHER, SELFPAY | LOC: HWRCS 11:11 | PROVIDERS: ATTENDING PHYSICIAN Nurse Practitioner Gerontology; FAMILY PHYSICIAN Family Medicine | DX: I25.5 Ischemic cardiomyopathy (principal); I50.20 Unspecified systolic (congestive) heart failure | CPT/HCPCS: 93306 ==